=== PATIENT | female | born 1975 | race Caucasian/White ===

== ENCOUNTER 2021-04-04 16:48 | Emergency (ER) | payer MEDICAID ==
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
[2021-04-04 17:08] VITALS: BP 140/88
[2021-04-04 19:13] VITALS: PULSE 72; O2SAT 99
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
== END 2021-04-04 19:19 | disposition home or self-care (01) ==
LOC: ED 16:48
DX: R13.10 Dysphagia, unspecified (principal)
CPT/HCPCS: 70490; 72125; 99283

== ENCOUNTER 2021-05-09 20:10 | Emergency (ER) | payer MEDICAID, OTHER ==
[2021-05-09 20:16] VITALS: BP 119/66; PULSE 71; O2SAT 99
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
== END 2021-05-09 20:36 | disposition home or self-care (01) ==
LOC: ED 20:10
DX: S43.422A Sprain of left rotator cuff capsule, initial encounter (principal); M25.512 Pain in left shoulder; V86.95XS Unspecified occupant of 3- or 4- wheeled all-terrain vehicle (ATV) injured in nontraffic accident, sequela
CPT/HCPCS: 99283

== ENCOUNTER 2023-02-19 16:50 | Emergency (ER) | payer OTHER ==
[2023-02-19] MEDS ORDERED: Kenalog-40 IM ONE (17:02)
[2023-02-19 17:04] VITALS: BP 125/74; PULSE 76
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
[2023-02-19 17:11] VITALS: O2SAT 100
[2023-02-19] MEDS ORDERED: Kenalog-40 ONE (17:12)
== END 2023-02-19 17:39 | disposition home or self-care (01) ==
LOC: ED 16:50
DX: L24.7 Irritant contact dermatitis due to plants, except food (principal); E78.5 Hyperlipidemia, unspecified; Z79.899 Other long term (current) drug therapy; Z79.52 Long term (current) use of systemic steroids
CPT/HCPCS: 96372; 99282; J3301